=== PATIENT | female | born 1950 | race Caucasian/White ===

== ENCOUNTER → 2016-07-25 | Outpatient (CLI) | payer MEDICARE, OTHER ==
[~2016-07-25] MED LIST: PREDNISONE; RELAFEN; SULFASALAZINE
== END ==
LOC: LAB 16:16
PROVIDERS: ATTEND Family Medicine
DX: M79.672 Pain in left foot (principal)
CPT/HCPCS: 36415; 84550

== ENCOUNTER 2016-08-09 05:55 | Inpatient (IN) | payer MEDICARE, OTHER ==
--- NOTE | 2016-07-03 14:00 | NUR ---
JOINT REPLACEMENT PREOP CLASS PATIENT ATTENDED JOINT REPLACEMENT PREOP CLASS. CASE MANAGEMENT CONTACT INFORMATION PROVIDED. EDUCATION WAS PROVIDED REGARDING WHAT TO EXPECT BEFORE, DURING AND AFTER SURGERY. INCLUDING: OVERVIEW OF ANATOMY AND PHYSIOLOGY HOSPITAL TREATMENT SCHEDULE THERAPY DEMONSTRATION CASE MANAGEMENT RESPONSIBILITIES DISCHARGE PLANNING EQUIPMENT NEEDS JOINT REPLACEMENT WORKBOOK ANTI-COAGULATION SURGERY STRONG NUTRITIONAL PROTOCOL DISCHARGE INSTRUCTIONS [facility] [place], WITH INSTRUCTIONS [facility] AND PREOP SURVERY PREOP BATHING- CHG GIVEN ALL PATIENT'S QUESTIONS ANSWERED TO THEIR SATISFACTION. PATIENTS AND COACHES ENCOURAGED TO CALL WITH ANY ADDITIONAL QUESTIONS OR CONCERNS. CM FOLLOWING FOR TRANSITIONAL CARE PLANNING NEEDS DURING HOSPITALIZATION.
[~2016-08-09] VITALS: Ht 162.6 cm; Wt 91.0 kg
[2016-08-09] VITALS (23 sets, daily range): BP systolic 105–147; BP diastolic 53–71; PULSE 59–89; RESP 14–18; TEMP 95.5–98.5; O2SAT 92–100; Ht 162.6 cm; Wt 91.0 kg
[~2016-08-09 05:55] MED LIST changes: +AMIT25TA9 PO; +ASCO10007 PO; +ASPI-557 PO; +FURO-154 PO; +GLUC1CAP25 PO; +GRAP50CA5 PO; +LOSA25TA34 PO; +METHYL PO; +MILK500C PO; +NAPR500T3 PO; +OMEP20TA2 PO; -PREDNISONE; -RELAFEN; +SULF500T8 PO; -SULFASALAZINE; +UBID100C10 PO; +[UNRECOGNIZED DRUG - OTHER] PO; +[UNRECOGNIZED DRUG - OTHER] PO; +[UNRECOGNIZED DRUG - OTHER] PO
[2016-08-09] MEDS ORDERED: FAMOTIDINE 20mg IVPB 50 ML IV ONE (06:00)
[2016-08-09] MEDS ORDERED: MELOXICAM 15 MG TABLET PO ONE (06:00)
[2016-08-09] MEDS ORDERED: LIDOCAINE 1% (10mg/ml) 2ml SDV SQ ONE (06:00)
[2016-08-09] MEDS ORDERED: TRANEXAMIC ACID 1,000 MG in NORMAL SALINE 100 ML IV ONE ×2 (06:00→07:00)
[2016-08-09] MEDS ORDERED: CEFAZOLIN 2 GM VIAL IV ONE (06:00)
[2016-08-09] MEDS ORDERED: METOCLOPRAMIDE 10mg/2ml INJECTION IV ONE (06:00)
[2016-08-09] MEDS ORDERED: VANCOMYCIN 1 GRAM INJECTION ONE (06:21)
[2016-08-09 06:46] LABS: ANION GAP 13 MEQ/L (5-15); BUN/CREATININE RATIO 22 RATIO (6-26); CALCIUM 9.7 MG/DL (8.4-10.2); CHLORIDE 106 MEQ/L (98-107); CO2 - CARBON DIOXIDE 28 MEQ/L (22-30); CREATININE 0.6 MG/DL (0.7-1.2); GLOMERULAR FILTRATION RATE 100; GLUCOSE 105 MG/DL (65-110); SODIUM 147 MEQ/L (134-144)
--- NOTE | 2016-08-09 06:50 | ANESPREOP ---
Anesthesia Record Date and Time DATE: 08/09/16 TIME: 06:47 Proposed Surgical Procedure RT TKA Allergies: Coded Allergies: ALICIA Inhibitors (Verified Adverse Reaction, Unknown, COUGH, 08/09/16) iron (Verified Adverse Reaction, Unknown, VOMITING, 08/09/16) Ht/Wt/BMI Height: 5 ' 4.00 " Weight: 84.800 kg BMI: 32.1 kg/m2 Vital Signs Date Time Temp Pulse Resp B/P Pulse Ox O2 Delivery O2 Flow Rate FiO2 08/09/16 06:10 98.1 82 16 147/70 93 Room Air Medications Inpatient Medications Current Medications Medications (Trade) Dose Ordered Sig/Kaitlin Start Time Stop Time Status Last Admin Dose Admin Lactated Ringer's (Lactated Ringers) 1,000 ml @ 50 mls/hr Q20H 08/09/16 07:00 Amitriptyline HCl (Amitriptyline HCl) 25 Mg Tablet, 1 TAB PO HS, (Reported) Last Taken: on 08/08/16 2100 Ascorbic Acid (Vitamin C) 1,000 Mg Tablet, 1 TAB PO DAILY, (Reported) Last Taken: on 08/02/16 Aspirin (Aspir 81) 81 Mg Tablet.dr, 1 TAB PO HS, ( Reported) Last Taken: on 08/02/16 Furosemide (Lasix) 20 Mg Tablet, 1 TAB PO DAILY, ( Reported) Last Taken: on 08/08/16 0900 Glucosa Pillai 2Kcl/Chondroitin Pillai (Glucosamine & Chondroitin Cap) 1 Each Capsule, 1 CAP PO BID, (Reported) Last Taken: on 08/02/16 Grape Seed Extract (Grape Seed Extract) 50 Mg Capsule, 375 MG PO DAILY, (Reported) Last Taken: on 08/02/16 Losartan Potassium (Losartan Potassium) 25 Mg Tablet, 1 TAB PO HS, (Reported) Last Taken: on 08/07/16 2100 Milk Thistle (Milk Thistle) 500 Mg Capsule, 1 CAP PO PM, (Reported) Last Taken: on 08/02/16 Naproxen (Naproxen) 500 Mg Tablet, 1 TAB PO BID, ( Reported) Last Taken: on 08/02/16 Omeprazole Magnesium (Prilosec Otc) 20 Mg Tablet.dr , 2 TAB PO DAILY, (Reported) Last Taken: on 08/09/16 0430 Sulfasalazine (Sulfasalazine) 500 Mg Tablet, 1, 000 MG PO BID, (Reported) Take 2 (500 mg) tablets, by mouth, 2 times a day. Last Taken: on 08/02/16 Ubidecarenone (Coq-10) 100 Mg Capsule, 1 CAP PO DAILY, (Reported) Last Taken: on 08/02/16 [CalMagPhos] , 1 TAB PO DAILY, (Reported) Last Taken: on 08/02/16 [Carotene Booster] , 1 TAB PO BID, (Reported) Last Taken: on 08/02/16 [Methyl B12] , 1 TAB PO DAILY, (Reported) Last Taken: on 08/02/16 Currently on Beta Stephanie: No Medical/Surgical History Anesthesia PMH: Reports: *Hypertension, Arthritis (RA; NECK, KNEES), Pneumonia (2-3 YEARS AGO), Reflux (controlled on meds) Smoking Status: Never smoker HX of Last Menstrual Period: HYST. AT AGE 37 Past Surgical History Orthopedic Surgeries: Yes - RT KNEE ARTHROSCOPY Abdominal Surgeries: Yes - LT ING HERNIA REPAIR Genitourinary Surgeries: Cardiac Surgeries: Endocrine Surgeries: Reproductive Surgeries: Yes - ABD HYST WITH TUMMY TUCK; D & C X2 Neurological Surgeries: Ear Surgeries: Nose Surgeries: Throat Surgeries: Other Surgeries: Yes - LT AX MASS EXC Anesthesia Adverse Reactions: FOUND none Family Hx of Anesthesia Advers: none Pertinent Findings Laboratory Tests 08/09/16 06:29 EKG Rhythm: Sinus Rhythm Physical Exam Respiratory: Bilat breath sounds equal, Lungs clear Cardiovascular: FOUND Regular rate, rhythm Airway Assessment Mallampati Score: I TMD: 2 Fingerbreadths Neck Extension: Good ASA: 3 Plan Anesthesia Plan: TIVA Regional: Spinal Discussion Discussed risks/options/alternatives of anesthesia and questions answered. Patient consents. Nursing pain assessment noted. Attestation Statement Prior to the delivery of any anesthetic medication, I examined the patient, developed the plan, obtained the patient's consent and discussed the risk and benefits of the procedure with the patient/guardian. DEMAR DONIS Aug 09, 2016 06:50
[2016-08-09] MEDS ORDERED: NOZIN NASAL SWAB NS ONE ×2 (07:00→09:15)
[2016-08-09] MEDS ORDERED: ONDANSETRON 4mg/2ml INJECTION IV ONE (07:00)
[2016-08-09] MEDS ORDERED: LR 1,000 ML IV SCH (07:00)
[2016-08-09] MEDS ORDERED: DEXAMETHASONE 4mg/ml - 1ml INJECTION IV ONE (07:00)
[2016-08-09] MEDS ORDERED: ACETAMINOPHEN 500 MG TABLET PO ONE (07:00)
[2016-08-09] MEDS ORDERED: MIDAZOLAM 2mg/2ml INJECTION IV ONE (07:04)
[2016-08-09] MEDS ORDERED: SALINE FLUSH 10ml SYRINGE IVF ONE (07:04)
[2016-08-09] MEDS ORDERED: ROPIVACAINE 0.5% (5mg/ml) 30ml INJ INJ ONE (07:04)
[2016-08-09] MEDS ORDERED: LIDOCAINE 2% (20mg/ml) 5ml PF SDV INFIL ONE (07:04)
[2016-08-09] MEDS ORDERED: PHENYLEPHRINE 10mg/ml INJECTION IV ONE (07:04)
--- NOTE | 2016-08-09 08:59 | PDOPERATE ---
Operative Report Date of Operation 08/09/16 Side: Right Preoperative Diagnosis: knee primary DJD Postoperative Diagnosis Same as preoperative diagnosis. Operation/Procedure: total knee arthroplasty (right) Surgeon Dione Dan MD Mailroom Personnel JOSELYN Zafar Complications None. Regional Block: Spinal Estimated Blood Loss See Anesthesia Record. Fluids Please See Anesthesia Record. Description of Operation Ms. Cruz and her right knee were identified and marked in the the preoperative holding area. She was then brought back to the operating suite and proper anesthesia was administered. She was then positioned supine on the operating table. The right lower extremity was then prepped and draped in my normal sterile fashion. Timeout was performed with all operating room personnel. The leg was exsanguinated and tourniquet inflated 250 mmHg. A standard anterior incision followed by a medial parapatellar approach was utilized. The majority of her arthritis was in the medial compartment. A distal femoral cut was made in 5 of valgus using intramedullary guide. The femur was sized at a 4 and rotation set using the epicondylar axis. Distal femoral cuts were performed. The tourniquet was then let down it was reinflated for cementing. A proximal tibial cut was made using extramedullary guide. Remaining osteophytes and meniscus were removed. Gaps were checked and they were well balanced and rectangular. Trial components were placed with a 9 mm spacer. This allowed for full range of motion and the patella tracked well. The knee was stable throughout range of motion. The patella was resurfaced with the knee in extension to a size 29. The tibia rotation was then marked and the tibia stamped at the proper rotation at a size 3. The bone was prepared for cementing and all components cemented into place and allowed to cure in extension. Betadine solution was used for 3 minutes during the curing period and then fully irrigated out with 1 L of normal saline. The tourniquet was deflated and hemostasis obtained with electrocautery. After the cement had cured the knee was taken through range of motion check for balance and stability which were good. Vancomycin powder was placed into the wound. The arthrotomy was closed with #1 Vicryl. The remainder of the wound was then closed by my drug safety assistant utilizing 2-0 vycral in the subcutaneous tissue. 4-0 monocryl was used in the subcuticular layer followed by dermabond and a sterile dressing. After closure the patient will be transferred to the recovery room under the care of anesthesia. PARTH DAN MD Aug 09, 2016 08:58
[2016-08-09] MEDS ORDERED: LORAZEPAM 1 MG TABLET PO PRN (09:15)
[2016-08-09] MEDS ORDERED: NAPROXEN 220 MG TABLET PO PRN (09:15)
[2016-08-09] MEDS ORDERED: SENNOSIDES 8.6 MG TABLET PO PRN (09:15)
[2016-08-09] MEDS ORDERED: EPINEPHRINE 0.25 MG, BUPIVACAINE 0.25% 75 MG, MORPHINE SULFATE 15 MG, KETOROLAC 60 MG i... INJ ONE ×5 (09:15)
[2016-08-09] MEDS ORDERED: ONDANSETRON 4mg/2ml INJECTION IV PRN ×2 (09:15→09:45)
[2016-08-09] MEDS ORDERED: METOCLOPRAMIDE 10mg/2ml INJECTION IV PRN (09:15)
[2016-08-09] MEDS ORDERED: PRN ORDERS MC (09:15)
[2016-08-09] MEDS ORDERED: DiphenhydrAMINE 25 MG CAPSULE PO PRN (09:15)
[2016-08-09] MEDS ORDERED: DiphenhydrAMINE 50 MG/ML INJECTION IV PRN (09:15)
--- NOTE | 2016-08-09 09:40 | ANESPD ---
Peripheral Nerve Blockade Physician: Oumar Dan MD Date: 08/09/16 Surgical Procedure: right adductor canal block Discussion Discussed risks/options/alternatives of anesthesia and questions answered. Patient consents. Nursing pain assessment noted. Block Start: 09:29 Block Stop: 09:34 Block Employed: Adductor Canal Indication: post-operative pain Approach: right side confirmed Position: supine Patient: Consent, risks/benefits discussed, Informed, post block act. discussed Monitors: EKG, SpO2, NIBP IV Sedation: No Initial Vital Signs First Documented Vital Signs Date Time Temp Pulse Resp B/P Pulse Ox O2 Delivery O2 Flow Rate FiO2 08/09/16 06:10 98.1 82 16 147/70 93 Room Air Post Vital Signs Vital Signs Date Time Temp Pulse Resp B/P Pulse Ox O2 Delivery O2 Flow Rate FiO2 08/09/16 06:10 98.1 82 16 147/70 93 Room Air Initial Pain Score: 0 Post Block Score: 0 Prep: chlorhexadine/ETOH Ultrasound Used?: Yes (see ultrasound image in EMR) Nerve Simulator Parathesia/Pain: none Injectate Ropivacaine (%): .5 Ropivacaine (mL): 20 Was Epi 1:200,000 Used?: No Injection Injection made incrementally with constant monitoring and aspiration every 5 ml. DEMAR DONIS Aug 09, 2016 09:40
[2016-08-09] MEDS ORDERED: HYDROMORPHONE 2mg/ml INJECTION IV PRN (09:45)
--- NOTE | 2016-08-09 09:54 | DI ---
Indication: ITS.REASON: POSTOP right knee replacement PROCEDURE: KNEE RIGHT 2 VIEW: Encounter: Initial Comparison: February 04, 2015 Findings: Postoperative changes of right total knee replacement are seen. There is expected postoperative subcutaneous gas. No evidence of hardware failure or acute fracture. No retained radiopaque surgical instruments or sponges. Overlying material causing artifact. Impression: New right total knee prosthesis without evidence of immediate complication. .
--- NOTE | 2016-08-09 09:55 | NUR ---
ADMIT ARRIVES TO ROOM 111 VIA CART. PATIENT TRANSFERRED FROM CART TO BED VIA SLIDE BOARD AND ASSIST X3 FROM NURSING STAFF. IVF INFUSING, O2 2L PER NC. PATIENT RESTING FLAT IN BED. SIDE RAILS UP X2, CALL LIGHT WITHIN REACH, BED IN LOWEST POSITION, AND BED ALARM ACTIVATED. RAMANA GONZALEZ RN AWARE OF PATIENT'S ARRIVAL.
--- NOTE | 2016-08-09 09:56 | ANESPO ---
Post-Op Note Date 08/09/16 Time: 09:50 Status Pt Participated in Evaluation: Pt participated in person Vital Signs Date Time Temp Pulse Resp B/P Pulse Ox O2 Delivery O2 Flow Rate FiO2 08/09/16 09:50 97.7 63 17 122/53 97 Nasal Cannula 2.00 Respiratory Function: Airway patent, Regular respirations Cardiovascular Function: Regular pulse Mental Status: Alert/oriented Pain Level Intensity: 0 Unable to Assess Pain Due To: Medicated/Sleeping Hydration: IV infusing Complications during Recovery None apparent Post-Anesthesia Notes moves feet Follow-Up Instructions Instructions Per Surgeon ALEXSANDRA SAWYER CRNA Aug 09, 2016 09:56
[2016-08-09] MEDS: NORMAL SALINE 1,000 ML IV SCH ×2 (10:21→21:42)
[2016-08-09] MEDS: NOZIN NASAL SWAB NS SCH ×2 (13:49→22:03)
[2016-08-09] MEDS: ACETAMINOPHEN 325 MG TABLET PO SCH ×3 (13:50→20:53)
[2016-08-09] MEDS: CEFAZOLIN 2 G in NORMAL SALINE 100 ML IV SCH ×2 (15:07→23:34)
--- NOTE | 2016-08-09 15:35 | NUR ---
CM CM IN TO VISIT WITH PT. SHE IS ALERT AND ORIENTED. SHE PLANS TO DC HOME. SHE WILL NEED FWW UPON DC. CM WILL ORDER ONE IN THE MORNING. SHE WILL DO OUTPT PT AT [facility]. SHE IS GIVEN CM CONTACT INFORMATION. Addendum: 08/09/16 at 1536 by FRANCISCO JAVIER BUCKLEY RN Amended: Links added.
--- NOTE | 2016-08-09 17:52 | NUR ---
STATUS PATIENT IS ALERT AND ORIENTED X3. PATIENT VITALS ARE STABLE AND PATIENT IS ON 1L VIA NC. PATIENT DENIES CP, NAUSEA, AND SOA. PATIENT AMBULATED 1X WITH PT, AND 1X WITH NURSING STAFF THIS SHIFT. PATIENT IS UP WITH 1X ASSIST, GB AND FWW. PATIENT DRESSING IS CLEAN, DRY, AND INTACT. FAMILY HAS BEEN AT BEDSIDE. WILL CONTINUE TO MONITOR.
[2016-08-09] MEDS: ASPIRIN *EC* 325mg TABLET PO SCH (20:51)
[2016-08-09] MEDS: SULFASALAZINE 500 MG TABLET PO SCH (21:00)
[2016-08-09] MEDS: OXYCODONE I.R. 5 MG TABLET PO PRN (21:05)
[2016-08-09] MEDS ORDERED: SENNOSIDES 8.6 MG TABLET PO SCH (22:00)
[2016-08-09] MEDS ORDERED: AMITRIPTYLINE 25 MG TABLET PO SCH (22:00)
[2016-08-09] MEDS ORDERED: LOSARTAN 50 MG TABLET PO SCH (22:00)
--- NOTE | 2016-08-09 23:30 | NUR ---
O2 sats drop from 94% to 82-83% when pt. goes to sleep. O2 applied at 2/L per NC.
[2016-08-10] VITALS (8 sets, daily range): BP systolic 108–145; BP diastolic 61–69; PULSE 62–72; RESP 16–20; TEMP 96.3–96.9; O2SAT 94–98
[2016-08-10 05:20] LABS: HCT - HEMATOCRIT 32.8 % (36-46); HGB - HEMOGLOBIN 10.2 GM/DL (12-16); MEAN CORPUSCULAR HGB 29.7 UUG (26-34); MEAN CORPUSCULAR HGB CONC(MCHC 31.1 GM/DL (31-37); MEAN CORPUSCULAR VOLUME 95.6 UM3 (80-100); MEAN PLATELET VOLUME 11.3 UM3 (9.4-12.4); RED BLOOD COUNT 3.43 M/MM3 (4.00-5.20); WBC - WHITE BLOOD COUNT 8.7 T/MM3 (4.5-11.0)
[2016-08-10 05:41] LABS: ANION GAP 9 MEQ/L (5-15); BUN/CREATININE RATIO 20 RATIO (6-26); CALCIUM 8.3 MG/DL (8.4-10.2); CHLORIDE 107 MEQ/L (98-107); CO2 - CARBON DIOXIDE 27 MEQ/L (22-30); CREATININE 0.7 MG/DL (0.7-1.2); GLOMERULAR FILTRATION RATE 84; GLUCOSE 114 MG/DL (65-110); POTASSIUM 4.1 MEQ/L (3.6-5); SODIUM 143 MEQ/L (134-144)
--- NOTE | 2016-08-10 05:49 | NUR ---
End Of Shift Summary: Alert and orientated; anxious at times. Ambulated in hallway with use of walker, gaitbelt and Nursing staff this evening. Tolerates food and fluid well. Reports voiding without difficulty. Dressing dry and intact to right knee. Polar pack in place. Roxicodone given at 2105 for pain befpre she went to bed. O2 saturations dropped when she was going to sleep... from 94 % room air to 82-83 % RA. as many calls are recieved from tele security monitor. Once pt. is awakened, O2 sats increase to 94-95% Resp. therapy is recording o2 saturations on another device. O2 is appplied per NC at 2/L. Pt. is having anxious and restless. Ativan PO is given at 0102. Patient finally settles for the night and sleeps well. O2 sats up to 98% with O2 at 2/L. Resp. Therapist turns O2 down to 1/L. Currently, pt. is sleeping. O2 sats at 96% with O2 at 1/L. Polar pack to right knee. IV in right hand with NS infusing at 80 cc/hr. SCDs have been on/off during the night per pt. comfort.
[2016-08-10] MEDS ORDERED: OMEPRAZOLE 20 MG CAPSULE PO SCH (06:30)
--- NOTE | 2016-08-10 07:00 | NUR ---
Patient did not take Sulfaslazine 1000 mg. as scheduled last evening because her Rhumatoid Doctor advised her to hold the medication 2 weeks before and 2 week after surgery due to increased risk of bleeding. Passed on to Day Shift Nurse.
[2016-08-10] MEDS: NOZIN NASAL SWAB NS SCH ×2 (07:24→14:42)
[2016-08-10] MEDS: SULFASALAZINE 500 MG TABLET PO SCH (08:28)
[2016-08-10] MEDS: ASPIRIN *EC* 325mg TABLET PO SCH (08:31)
[2016-08-10] MEDS: ACETAMINOPHEN 325 MG TABLET PO SCH ×2 (08:32→12:44)
[2016-08-10] MEDS ORDERED: DOCUSATE SODIUM 100 MG CAPSULE PO SCH (09:00)
[2016-08-10] MEDS ORDERED: FUROSEMIDE 20 MG TABLET PO SCH (09:00)
[2016-08-10] MEDS ORDERED: POLYETHYL.GLYCOL 3350 PACKET 17gm PO SCH (09:00)
[2016-08-10] MEDS ORDERED: COENZYME Q10 200 MG TABLET PO SCH (09:00)
--- NOTE | 2016-08-10 09:05 | PDORTHOPN ---
Subjective Date DATE: 08/10/16 TIME: 08:58 Subjective Elizabeth is doing great. Pain is controlled. No new complaints or concerns at this time. Denies CP, cough or SOA. Needed some oxygen overnight as sats dropped to the mid 80's during sleep. Pt is aware that she needs to see her PCP for possible sleep study. Stop Bang is positive of intermediate risk of MAGY. Objective Vital Signs Vital signs Vital Signs 08/09/16 08/09/16 08/10/16 08/10/16 21:59 23:30 00:00 01:10 Temp 96.9 Pulse 74 62 74 Resp 20 B/P 108/61 Pulse Ox 92 96 97 O2 Delivery Room Air Nasal Cannula Nasal Cannula Nasal Cannula O2 Flow Rate 2.00 2.00 2.00 08/10/16 08/10/16 08/10/16 08/10/16 03:50 04:00 05:41 07:44 Temp 96.9 96.3 Pulse 76 68 72 72 Resp 20 16 B/P 110/62 138/68 Pulse Ox 98 98 94 96 O2 Delivery Nasal Cannula Nasal Cannula Nasal Cannula Room Air O2 Flow Rate 2.00 1.00 1.00 08/10/16 07:47 Pulse 72 Resp 16 Height (Feet): 5 Height (Inches): 4.00 Weight (Kilograms): 91.000 General General Appearance: No Acute Distress Respiratory (Brief) Respiratory Brief: FOUND: non-labored Cardiovascular (Brief) Cardiac: FOUND: calf easily compressible, calf soft, nontender, pedal pulses intact Surgical Site Incision: FOUND: Mepilex dressing intact, no drainage Neurologic (Brief) Neurological Brief: FOUND: extremities w/o deficits, neuro intact Psychiatric (Brief) Psychiatric Brief: FOUND: alert, no acute distress Laboratory Laboratory Laboratory Tests 08/10/16 04:14 Laboratory Tests 08/09/16 06:29 08/10/16 04:14 Assessment & Plan Problems: (1) Degenerative arthritis of right knee Status: Chronic Qualifiers: Osteoarthritis type: primary Qualified Codes: M17.11 - Unilateral primary osteoarthritis, right knee Assessment & Plan: Current anti-coagulation protocol for VTE prophylaxis. SCD's. PT/OT services to improve independent function. Discharge Planning per Case Management. Hospital Course Summary Disclaimer The visit summary below is not to be considered part of the above Progress Note. AMADOU SOLITARIO Aug 10, 2016 09:01
--- NOTE | 2016-08-10 09:42 | NUR ---
DEVORA LOZOYA IN TO VISIT WITH PT. SHE IS ALERT AND ORIENTED. SHE OPTS TO DO LOVENOX INJECTIONS AT [facility]. Addendum: 08/10/16 at 1053 by FRANCISCO JAVIER BUCKLEY RN WRONG PATIENT
[2016-08-10] MEDS: NORMAL SALINE 1,000 ML IV SCH (10:12)
[2016-08-10] MEDS: OXYCODONE I.R. 5 MG TABLET PO PRN ×2 (10:29→14:43)
--- NOTE | 2016-08-10 10:53 | NUR ---
DEVORA CM IN TO VISIT WITH PT. SHE CONFIRMS THAT SHE WOULD LIKE FWW ORDERED FOR DELIVERY PRIOR TO DC. ORDERS ARE FAXED TO [facility]. CM RECEIVED CALL THAT THEY WILL DELIVER FWW PRIOR TO 1500.
[2016-08-10] MEDS ORDERED: ACET-2321 PO (11:00)
[2016-08-10] MEDS ORDERED: OXYC5TAB84 PO (11:00)
[2016-08-10] MEDS ORDERED: ASPI-917 PO (11:00)
[2016-08-10] MEDS ORDERED: POLY17PO18 PO (11:00)
[2016-08-10] MEDS ORDERED: NAPR-1119 PO (11:00)
--- NOTE | 2016-08-10 11:56 | DSPDOC ---
General Date Date DATE: 08/10/16 TIME: 11:55 Attending Physician Oumar Dan MD Admitting Physician Oumar Dan MD Consulting Physician Admitting Diagnosis PRIMARY DEGENERATIVE JOINT DISEASE Discharge Diagnosis primary DJD right knee Procedures right total knee arthroplasty Diagnosis right knee primary DJD History of Present Illness HPI Elements This patient was admitted for elective surgical tx of end stage degenerative joint disease that failed to respond to conservative treatment. Further details of this is found in the admission H&P. Hospital Course After appropriate preoperative clearance and signing of operative consent, the patient was given IV antibiotics, according to orthopedic protocol. The patient was taken to the operating room and underwent elective joint arthroplasty. Following surgery, antibiotics were discontinued less than 24 hours according to joint protocol. Appropriate anticoagulants were initiated and SCDs added for DVT prevention. The dressing was clean, dry, and intact. Pain control was obtained via multimodal approach. Bowel motivation addressed with scheduled and PRN medications. Early mobilization was initiated through PT services. Discharge arrangements made by a collaborative effort between the patient and Case Management. Follow-up is scheduled in 2-3 weeks. Discharge instructions given by orthopedic providers and nursing staff at discharge. Discharge condition was good. Problems: (1) Degenerative arthritis of right knee Status: Chronic Assessment & Plan: Current anti-coagulation protocol for VTE prophylaxis. SCD's. PT/OT services to improve independent function. Discharge Planning per Case Management. Associated Postoperative Event: Acute P.O. Anemia Acute P.O. Anemia: Patient received IVF, Labs monitored daily, No intervention required, HGB drop-acceptable range Laboratory Laboratory Tests Test 08/10/16 04:14 White Blood Count 8.7T/MM3 Red Blood Count 3.43M/MM3 Hemoglobin 10.2GM/DL Hematocrit 32.8% Mean Corpuscular Volume 95.6UM3 Mean Corpuscular Hemoglobin 29.7UUG Mean Corpuscular Hemoglobin Concent 31.1GM/DL RDW Standard Deviation 47.5FL Platelet Count 162T/MM3 Mean Platelet Volume 11.3UM3 Turbidity < 20 Sodium Level 143MEQ/L Potassium Level 4.1MEQ/L Chloride Level 107MEQ/L Carbon Dioxide Level 27MEQ/L Anion Gap 9MEQ/L Blood Urea Nitrogen 14.0MG/DL Creatinine 0.7MG/DL Glomerular Filtration Rate Calc 84 BUN/Creatinine Ratio 20RATIO Glucose Level 114MG/DL Calculated Osmolality 277MOSM/KG Calcium Level 8.3MG/DL Icterus Index < 2 Chemistry Specimen Hemolysis < 15 Home Meds Active Scripts Polyethylene Glycol 3350 (Healthylax) 17 Gm Powd.pack, 17 G PO DAILY, #30 PACKET Prov:MILAGROS MORENO 08/10/16 Oxycodone HCl (Oxycodone HCl) 5 Mg Tablet, 5-15 MG PO Q3H Y for BREAKTHROUGH PAIN, #60 TAB Prov:MILAGROS MORENO 08/10/16 Naproxen Sodium (Naproxen 220mg) 220 Mg Tablet, 440 MG PO BID Y for PAIN, #84 TAB Prov:MILAGROS MORENO 08/10/16 Aspirin *EC* (Aspirin EC) 325 Mg Tablet.dr, 325 MG PO BID, #84 TAB Prov:MILAGROS MORENO 08/10/16 Acetaminophen (Tylenol) 325 Mg Tablet, 650 MG PO QID, #100 TAB Prov:MILAGROS MORENO 08/10/16 Reported Medications Omeprazole Magnesium (Prilosec Otc) 20 Mg Tablet.dr, 2 TAB PO DAILY, TAB 07/31/16 Ubidecarenone (Coq-10) 100 Mg Capsule, 1 CAP PO DAILY 07/31/16 Ascorbic Acid (Vitamin C) 1,000 Mg Tablet, 1 TAB PO DAILY 07/31/16 Furosemide (Lasix) 20 Mg Tablet, 1 TAB PO DAILY, TAB 07/31/16 Losartan Potassium (Losartan Potassium) 25 Mg Tablet, 1 TAB PO HS 07/31/16 Glucosa Pillai 2Kcl/Chondroitin Pillai (Glucosamine & Chondroitin Cap) 1 Each Capsule, 1 CAP PO BID 07/31/16 Amitriptyline HCl (Amitriptyline HCl) 25 Mg Tablet, 1 TAB PO HS, TAB 07/31/16 Sulfasalazine (Sulfasalazine) 500 Mg Tablet, 1000 MG PO BID, TAB Take 2 (500 mg) tablets, by mouth, 2 times a day. 07/31/16 Discontinued Reported Medications Grape Seed Extract (Grape Seed Extract) 50 Mg Capsule, 375 MG PO DAILY 07/31/16 Milk Thistle (Milk Thistle) 500 Mg Capsule, 1 CAP PO PM 07/31/16 [Methyl B12] No Conflict Check, 1 TAB PO DAILY 07/31/16 [Carotene Booster] No Conflict Check, 1 TAB PO BID 07/31/16 [CalMagPhos] No Conflict Check, 1 TAB PO DAILY 07/31/16 Aspirin (Aspir 81) 81 Mg Tablet.dr, 1 TAB PO HS, TAB 07/31/16 Naproxen (Naproxen) 500 Mg Tablet, 1 TAB PO BID, TAB 07/31/16 Discharge Disposition Please refer to Case Management Notes for patient's disposition. Estimated Blood Loss 50.0 MILAGROS MORENO Aug 10, 2016 11:55
--- NOTE | 2016-08-10 15:59 | NUR ---
Discharge Pt discharged at this time via ambulatory status with Pts own walker through the main entrance in the company of her . VS stable on RA. Polar pack sent with Pt as well as prescriptions to take to preferred pharmacy. IV catheter DC'd prior to discharge, catheter tip intact. Discharge packet and instructions gone over with Pt. This RN discussed medications, activity, diet, restrictions, and follow up appt with Pt. Pt verbalized understanding.
[2016-08-11] MEDS ORDERED: MILK OF MAGNESIA 30 ML SUSP PO SCH (08:00)
[2016-08-11] MEDS ORDERED: BISACODYL 10 MG SUPPOSITORY RECTALLY SCH (20:00)
== END 2016-08-10 16:00 | disposition home or self-care (01) | DRG 470 ==
LOC: SRG 05:55
PROVIDERS: ADMIT Orthopaedic Surgery; ATTEND Orthopaedic Surgery
PROC: 0SRC0J9 Replacement of Right Knee Joint with Synthetic Substitute, Cemented, Open Approach (ICD-10-PCS; principal; 2016-08-09 07:43)
DX: M17.0 Bilateral primary osteoarthritis of knee (principal); D64.9 Anemia, unspecified; M06.9 Rheumatoid arthritis, unspecified; I10 Essential (primary) hypertension; K21.9 Gastro-esophageal reflux disease without esophagitis; Z79.82 Long term (current) use of aspirin
CPT/HCPCS: 80048; 94664; 94762